=== PATIENT | female | born 1965 | race Caucasian/White ===

== ENCOUNTER → 2017-12-03 | Outpatient (CLI) | payer MEDICAID ==
[~2017-12-03] MED LIST: ACET-2247 PO; PANT20TA PO
== END ==
LOC: RAH 08:12
PROVIDERS: ATTEND Internal Medicine Gastroenterology
DX: N28.1 Cyst of kidney, acquired (principal); R63.4 Abnormal weight loss
CPT/HCPCS: 76700; 93975

== ENCOUNTER → 2018-01-08 | Outpatient (CLI) | payer MEDICAID | END | disposition home or self-care (01) | LOC: RAH 08:43 | PROVIDERS: ATTEND Internal Medicine Gastroenterology | DX: I74.9 Embolism and thrombosis of unspecified artery (principal); R10.84 Generalized abdominal pain | CPT/HCPCS: 93975 ==

== ENCOUNTER → 2018-01-19 | Outpatient (CLI) | payer MEDICAID ==
[~2018-01-19] MED LIST changes: +IOPAMIDOL-370 100 ML VIAL IV ONE
== END | disposition home or self-care (01) ==
LOC: RAH 08:29
PROVIDERS: ATTEND Internal Medicine Gastroenterology
DX: R93.3 Abnormal findings on diagnostic imaging of other parts of digestive tract (principal)
CPT/HCPCS: 74174; Q9967

== ENCOUNTER 2024-07-17 16:06 | Inpatient (IN) | payer MEDICAID ==
[~2024-07-17] VITALS: Ht 162.6 cm; Wt 47.9 kg
[~2024-07-17 16:06] MED LIST changes: -IOPAMIDOL-370 100 ML VIAL IV ONE
[2024-07-17 18:09] LABS: BASOPHILS # (AUTO) 0.06 K/uL (0.00-0.20); BASOPHILS % (AUTO) 0.3 % (0.0-5.0); EOSINOPHILS # (AUTO) 0.01 K/uL (0.00-0.70); EOSINOPHILS % (AUTO) 0.1 % (0.0-8.0); HEMATOCRIT 32.9 % (36-48); IMMATURE GRANULOCYTE ABSOLUTE 0.22 K/uL (0-1); LYMPHOCYTES # (AUTO) 1.8 K/uL (1.0-4.8); LYMPHOCYTES % (AUTO) 10.2 % (21.0-51.0); MEAN CORPUSCULAR HEMOGLOBIN 29.1 pg (27.0-33.0); MEAN CORPUSCULAR HGB CONC 33.4 g/dL (32.0-36.0); MONOCYTES # (AUTO) 1.1 K/uL (0.1-1.0); MONOCYTES % (AUTO) 6.4 % (3.0-13.0); NEUTROPHILS # (AUTO) 14.2 K/uL (1.8-7.7); NEUTROPHILS % (AUTO) 81.7 % (40.0-77.0); PLATELET COUNT (AUTO) 548 K/uL (130-400); RED BLOOD CELL COUNT(AUTO) 3.78 MIL/uL (4.00-5.50); RED CELL DISTRIBUTION WIDTH 13.5 % (11.0-15.5); WHITE BLOOD COUNT (AUTO) 17.4 K/uL (4.8-10.8)
[2024-07-17 18:13] LABS: APPEARANCE,URINE CLEAR (CLEAR); BILIRUBIN,URINE NEGATIVE (NEGATIVE); COLOR,URINE LIGHT-YELLOW (YELLOW); GLUCOSE, URINE (UA) NEGATIVE (NEGATIVE); KETONES,URINE NEGATIVE (NEGATIVE); LEUKOCYTE ESTERASE ,URINE NEGATIVE Leu/uL (NEGATIVE); NITRATE,URINE NEGATIVE (NEGATIVE); OCCULT BLOOD,URINE NEGATIVE (NEGATIVE); PH,URINE 5.5 (5.0-8.0); PROTEIN,URINE NEGATIVE (NEGATIVE); UROBILINOGEN,URINE 0.2 mg/dL (0.2-1.0)
[2024-07-17 18:17] LABS: ADD UA MICROSCOPIC NO
[2024-07-17 18:23] LABS: SARS-CoV-2, RNA, NAAT NEGATIVE SARS CoV-2 (NEGATIVE)
[2024-07-17 18:28] LABS: CREATININE 0.6 mg/dL (0.5-1.0); POTASSIUM 3.2 mmol/L (3.5-5.1)
[2024-07-17 18:32] LABS: INFLUENZA TYPE A Negative For Type A (NEGATIVE); INFLUENZA TYPE B Negative For Type B (NEGATIVE)
[2024-07-17 18:43] LABS: B-TYPE NATRIURETIC PEPTIDE 104 pg/mL (0-100)
[2024-07-17] MEDS: AZITHROMYCIN 500MG+NS 250ML 250 ML IVPB ONE (19:21)
[2024-07-17] MEDS: acetaMINOPHEN 500 MG TABLET PO ONE (19:22)
[2024-07-17 19:33] VITALS: PULSE 105; RESP 24
[2024-07-17] MEDS: IpraTROPium/alBUTERol SULFATE 3 ML SOLUTION IH ONE (19:33)
[2024-07-17] MEDS ORDERED: PoTASSium chloRIDE 20MEQ/100ML 100 ML IV PRN (21:00)
[2024-07-17] MEDS ORDERED: guaiFENesin-DM 200/20MG 10ML PO PRN (21:00)
[2024-07-17] MEDS ORDERED: NITROGLYCERIN 0.4 MG SL TAB SL PRN (21:00)
[2024-07-17] MEDS ORDERED: acetaMINOPHEN 325 MG TAB PO PRN (21:00)
[2024-07-17] MEDS: AZITHROMYCIN 500MG+NS 250ML 250 ML IV SCH (21:00)
[2024-07-17] MEDS: FAMOTIDINE 20MG TAB PO SCH (21:38)
[2024-07-17 22:27] VITALS: PULSE 96; RESP 20; O2SAT 97
[2024-07-17] MEDS: IpraTROPium/alBUTERol SULFATE 3 ML SOLUTION IH SCH (22:27)
[2024-07-18] VITALS (11 sets, daily range): BP systolic 106–116; BP diastolic 49–68; PULSE 86–110; RESP 17–20; TEMP 98.5–104; O2SAT 94–99
[2024-07-18] MEDS: PoTASSium chl 10% ELIXIR 20MEQ 20 MEQ/15 ML UDCUP PO PRN (00:16)
[2024-07-18] MEDS: 0.9% NACL 500ML IV.SOLN 500 ML IV SCH (01:19)
[2024-07-18] MEDS: PoTASSium chloRIDE 20MEQ ER 20 MEQ ERTAB PO PRN (01:19)
[2024-07-18] MEDS: 0.9%NACL 1000ML 1,000 ML IV SCH (01:19)
[2024-07-18 06:02] LABS: BASOPHILS # (AUTO) 0.04 K/uL (0.00-0.20); BASOPHILS % (AUTO) 0.2 % (0.0-5.0); EOSINOPHILS # (AUTO) 0.01 K/uL (0.00-0.70); EOSINOPHILS % (AUTO) 0.1 % (0.0-8.0); HEMATOCRIT 30.8 % (36-48); IMMATURE GRANULOCYTE ABSOLUTE 0.25 K/uL (0-1); LYMPHOCYTES # (AUTO) 1.8 K/uL (1.0-4.8); LYMPHOCYTES % (AUTO) 9.5 % (21.0-51.0); MEAN CORPUSCULAR HEMOGLOBIN 28.5 pg (27.0-33.0); MEAN CORPUSCULAR HGB CONC 32.8 g/dL (32.0-36.0); MEAN CORPUSCULAR VOLUME 86.8 fL (79-99); MONOCYTES % (AUTO) 5.5 % (3.0-13.0); NEUTROPHILS # (AUTO) 15.7 K/uL (1.8-7.7); NEUTROPHILS % (AUTO) 83.4 % (40.0-77.0); PLATELET COUNT (AUTO) 552 K/uL (130-400); RED BLOOD CELL COUNT(AUTO) 3.55 MIL/uL (4.00-5.50); RED CELL DISTRIBUTION WIDTH 13.6 % (11.0-15.5); WHITE BLOOD COUNT (AUTO) 18.8 K/uL (4.8-10.8)
[2024-07-18 06:18] LABS: ALBUMIN 2.5 g/dL (3.5-5.0); BILIRUBIN,TOTAL 0.4 mg/dL (0.2-1.0); CREATININE 0.7 mg/dL (0.5-1.0); MAGNESIUM 1.9 mg/dL (1.80-2.40); POTASSIUM 4.1 mmol/L (3.5-5.1); TOTAL PROTEIN, SERUM 7.7 g/dL (6.0-8.3)
[2024-07-18] MEDS: acetaMINOPHEN 325 MG TAB PO PRN (06:27)
[2024-07-18] MEDS: ENOXAPARIN SODIUM 30 MG/0.3 ML SQ SCH (08:37)
[2024-07-18] MEDS ORDERED: IOHEXOL-350 75 ML VIAL IV ONE (09:50)
[2024-07-18] MEDS: DOXYCYCLINE 100MG+NS 250ML 250 ML IV SCH (10:46)
[2024-07-18 12:06] LABS: ABG BASE EXCESS -3.6 mmol/L (-2.0-3.0); ABG HCO3 18.4 mmol/L (21.0-28.0); ABG OXYGEN SATURATION 92.5 % (94.0-98.0); ABG PCO2 24 mmHg (32-45); ABG PH 7.501 (7.350-7.450); CARBON MONOXIDE 0.3 % (0.5-1.5); DEVICE COMMENT RR,OSCAR; HHb 7.5; PO2, ARTERIAL BG 62.6 mmHg (83.0-108.0); VENT MODE, BG RA (ROOM AIR)
[2024-07-18] MEDS: ZOSYN 3.375GM +NS 50ML IV SCH (12:08)
[2024-07-18] MEDS: Solu-medROL 40MG VIAL IVP SCH (13:32)
[2024-07-18] MEDS: NICOTINE 14 MG/ 24 HR PATCH TD SCH (13:33)
[2024-07-18] MEDS: MAGNESIUM 2GM PREMIX 50ML 50 ML IV PRN (13:33)
[2024-07-18] MEDS ORDERED: ACET325C6 PO (13:50)
[2024-07-18 14:16] LABS: AMPHET/METH SCREEN,URINE NEGATIVE (NEGATIVE); BARBITURATE SCREEN, URINE NEGATIVE (NEGATIVE); BENZODIAZEPINES SCREEN,URINE NEGATIVE (NEGATIVE); CANNABINOID SCREEN,URINE POSITIVE (NEGATIVE); COCAINE SCREEN,URINE NEGATIVE (NEGATIVE); OPIATE SCREEN,URINE NEGATIVE (NEGATIVE); PHENCYCLIDINE SCREEN,URINE NEGATIVE (NEGATIVE)
[2024-07-18] MEDS: SODIUM CHLORIDE 3% FOR INHALATION 4 ML/AMP VIAL.NEB IH ONE ×2 (18:32→22:51)
[2024-07-18] MEDS: MELATONIN 5 MG TABLET PO SCH (19:52)
[2024-07-18] MEDS: ondanSETRON 4MG INJ IV PRN (19:53)
[2024-07-19] VITALS (10 sets, daily range): BP systolic 98–121; BP diastolic 42–65; PULSE 79–101; RESP 17–20; TEMP 97.7–99.3; O2SAT 95–98
[2024-07-19 05:36] LABS: BASOPHILS # (AUTO) 0.05 K/uL (0.00-0.20); BASOPHILS % (AUTO) 0.2 % (0.0-5.0); HEMATOCRIT 26.4 % (36-48); IMMATURE GRANULOCYTE ABSOLUTE 0.31 K/uL (0-1); LYMPHOCYTES % (AUTO) 4.7 % (21.0-51.0); MEAN CORPUSCULAR HEMOGLOBIN 29.1 pg (27.0-33.0); MEAN CORPUSCULAR VOLUME 88.3 fL (79-99); MONOCYTES # (AUTO) 0.4 K/uL (0.1-1.0); MONOCYTES % (AUTO) 2.1 % (3.0-13.0); NEUTROPHILS # (AUTO) 19.2 K/uL (1.8-7.7); NEUTROPHILS % (AUTO) 91.5 % (40.0-77.0); PLATELET COUNT (AUTO) 484 K/uL (130-400); RED BLOOD CELL COUNT(AUTO) 2.99 MIL/uL (4.00-5.50); WHITE BLOOD COUNT (AUTO) 20.9 K/uL (4.8-10.8)
[2024-07-19 05:48] LABS: INR 1.17 (0.85-1.15); PROTHROMBIN TIME 12.5 SEC (9.6-11.6)
[2024-07-19 05:49] LABS: PARTIAL THROMBOPLASTIN TIME 28.5 SEC (26.3-35.5)
[2024-07-19 06:07] LABS: ALBUMIN 1.9 g/dL (3.5-5.0); BILIRUBIN,TOTAL 0.3 mg/dL (0.2-1.0); CREATININE 0.6 mg/dL (0.5-1.0); POTASSIUM 3.4 mmol/L (3.5-5.1); TOTAL PROTEIN, SERUM 6.6 g/dL (6.0-8.3)
[2024-07-19 06:20] LABS: B-TYPE NATRIURETIC PEPTIDE 311 pg/mL (0-100)
[2024-07-19] MEDS: monteLUKAST sodIUM 10 MG TAB PO SCH (08:41)
[2024-07-19] MEDS: ALPRAZolam 0.25 MG TABLET PO ONE (14:30)
[2024-07-19] MEDS: IpraTROPium/alBUTERol SULFATE 3 ML SOLUTION IH SCH (19:28)
[2024-07-20] VITALS (14 sets, daily range): BP systolic 95–146; BP diastolic 51–69; PULSE 75–99; RESP 16–20; TEMP 97.5–97.9; O2SAT 97–98
[2024-07-20 05:55] LABS: BASOPHILS # (AUTO) 0.08 K/uL (0.00-0.20); BASOPHILS % (AUTO) 0.2 % (0.0-5.0); HEMATOCRIT 32.6 % (36-48); IMMATURE GRANULOCYTE ABSOLUTE 1.12 K/uL (0-1); LYMPHOCYTES # (AUTO) 1.6 K/uL (1.0-4.8); LYMPHOCYTES % (AUTO) 4.5 % (21.0-51.0); MEAN CORPUSCULAR HEMOGLOBIN 29.2 pg (27.0-33.0); MEAN CORPUSCULAR HGB CONC 32.2 g/dL (32.0-36.0); MEAN CORPUSCULAR VOLUME 90.8 fL (79-99); MONOCYTES % (AUTO) 2.8 % (3.0-13.0); NEUTROPHILS # (AUTO) 32.7 K/uL (1.8-7.7); NEUTROPHILS % (AUTO) 89.4 % (40.0-77.0); RED BLOOD CELL COUNT(AUTO) 3.59 MIL/uL (4.00-5.50); RED CELL DISTRIBUTION WIDTH 14.2 % (11.0-15.5)
[2024-07-20 05:59] LABS: PLATELET COUNT (AUTO) 726 K/uL (130-400); WHITE BLOOD COUNT (AUTO) 36.6 K/uL (4.8-10.8)
[2024-07-20 06:20] LABS: ALBUMIN 2.3 g/dL (3.5-5.0); BILIRUBIN,TOTAL 0.2 mg/dL (0.2-1.0); CREATININE 0.8 mg/dL (0.5-1.0); POTASSIUM 4.4 mmol/L (3.5-5.1); THYROID STIMULATING HORMONE 0.59 uIU/mL (0.36-3.74); TOTAL PROTEIN, SERUM 7.5 g/dL (6.0-8.3)
[2024-07-20 07:40] LABS: LYMPHOCYTES % (MANUAL) 6 % (22-44); MAN.DIFF COMMENT-IMPRESSION MANUAL DIFFERENTIAL; MONOCYTES % (MANUAL) 2 % (2-9); PLATELET MORPHOLOGY COMMENT MARKED INCREASE; SEGMENTED NEUTROPHILS % 92 % (40-70); TOTAL CELLS COUNTED 100
[2024-07-20] MEDS: predniSONE 20 MG TABLET PO SCH (09:04)
[2024-07-21] VITALS (14 sets, daily range): BP systolic 95–146; BP diastolic 54–80; PULSE 71–108; RESP 16–20; TEMP 97.6–98.4; O2SAT 95–98
[2024-07-21 04:52] LABS: BASOPHILS # (AUTO) 0.03 K/uL (0.00-0.20); BASOPHILS % (AUTO) 0.2 % (0.0-5.0); HEMATOCRIT 26.1 % (36-48); LYMPHOCYTES # (AUTO) 2.6 K/uL (1.0-4.8); LYMPHOCYTES % (AUTO) 14.2 % (21.0-51.0); MEAN CORPUSCULAR HEMOGLOBIN 28.7 pg (27.0-33.0); MEAN CORPUSCULAR HGB CONC 32.6 g/dL (32.0-36.0); MEAN CORPUSCULAR VOLUME 88.2 fL (79-99); MONOCYTES % (AUTO) 5.4 % (3.0-13.0); NEUTROPHILS # (AUTO) 14.1 K/uL (1.8-7.7); NEUTROPHILS % (AUTO) 77.5 % (40.0-77.0); PLATELET COUNT (AUTO) 595 K/uL (130-400); RED BLOOD CELL COUNT(AUTO) 2.96 MIL/uL (4.00-5.50); RED CELL DISTRIBUTION WIDTH 13.9 % (11.0-15.5); WHITE BLOOD COUNT (AUTO) 18.3 K/uL (4.8-10.8)
[2024-07-21 05:17] LABS: ALBUMIN 1.9 g/dL (3.5-5.0); BILIRUBIN,TOTAL 0.2 mg/dL (0.2-1.0); CREATININE 0.6 mg/dL (0.5-1.0); POTASSIUM 3.3 mmol/L (3.5-5.1); TOTAL PROTEIN, SERUM 5.9 g/dL (6.0-8.3)
[2024-07-21 05:59] LABS: B-TYPE NATRIURETIC PEPTIDE 185 pg/mL (0-100)
[2024-07-21] MEDS: ALPRAZolam 0.25 MG TABLET PO ONE (12:43)
[2024-07-22] VITALS (11 sets, daily range): BP systolic 105–124; BP diastolic 56–62; PULSE 70–88; RESP 18–20; TEMP 97.8–98.3; O2SAT 95–99
[2024-07-22 06:12] LABS: BASOPHILS # (AUTO) 0.07 K/uL (0.00-0.20); BASOPHILS % (AUTO) 0.5 % (0.0-5.0); EOSINOPHILS # (AUTO) 0.01 K/uL (0.00-0.70); EOSINOPHILS % (AUTO) 0.1 % (0.0-8.0); LYMPHOCYTES # (AUTO) 3.4 K/uL (1.0-4.8); LYMPHOCYTES % (AUTO) 22.8 % (21.0-51.0); MEAN CORPUSCULAR HEMOGLOBIN 28.7 pg (27.0-33.0); MEAN CORPUSCULAR HGB CONC 32.6 g/dL (32.0-36.0); MEAN CORPUSCULAR VOLUME 88.1 fL (79-99); MONOCYTES # (AUTO) 0.9 K/uL (0.1-1.0); MONOCYTES % (AUTO) 5.9 % (3.0-13.0); NEUTROPHILS # (AUTO) 9.7 K/uL (1.8-7.7); NEUTROPHILS % (AUTO) 64.7 % (40.0-77.0); RED BLOOD CELL COUNT(AUTO) 3.52 MIL/uL (4.00-5.50)
[2024-07-22 06:14] LABS: PLATELET COUNT (AUTO) 789 K/uL (130-400)
[2024-07-22 06:32] LABS: ALBUMIN 2.2 g/dL (3.5-5.0); BILIRUBIN,TOTAL 0.2 mg/dL (0.2-1.0); CREATININE 0.6 mg/dL (0.5-1.0); POTASSIUM 3.6 mmol/L (3.5-5.1); TOTAL PROTEIN, SERUM 6.5 g/dL (6.0-8.3)
[2024-07-22 07:35] LABS: BAND NEUTROPHILS % (MANUAL) 3 % (0-2); LYMPHOCYTES % (MANUAL) 31 % (22-44); MAN.DIFF COMMENT-IMPRESSION MANUAL DIFFERENTIAL; MONOCYTES % (MANUAL) 5 % (2-9); SEGMENTED NEUTROPHILS % 61 % (40-70); TOTAL CELLS COUNTED 100
[2024-07-22 07:36] LABS: WBC MORPHOLOGY CONSISTENT W/DIFF
[2024-07-22 07:37] LABS: PLATELET MORPHOLOGY COMMENT MARKED INCREASE
[2024-07-22] MEDS: fluCONazole 100 MG TAB PO SCH (09:00)
[2024-07-22] MEDS: ALPRAZolam 0.25 MG TABLET PO SCH (09:02)
[2024-07-22 09:16] LABS: FREE KAPPA LIGHT CHAINS,S 25.2 mg/L (3.3-19.4)
[2024-07-22] MEDS ORDERED: FLUT1BLS3 IH (15:05)
[2024-07-22] MEDS ORDERED: CHOL500050 PO (15:05)
[2024-07-22] MEDS ORDERED: ASCO250T70 PO (15:05)
[2024-07-22] MEDS ORDERED: CYAN-106 PO (15:05)
[2024-07-22] MEDS ORDERED: FOLI0.8T3 PO (15:05)
[2024-07-22] MEDS ORDERED: ALBU18HF7 IH (15:05)
[2024-07-22] MEDS ORDERED: PRED20TA3 PO (15:05)
[2024-07-22] MEDS ORDERED: PRED10TA3 PO (15:05)
[2024-07-22 16:12] LABS: ALBUMIN (IFE & ELECTROPHOR) 2.4 g/dL (2.9-4.4); ALBUMIN/GLOBULIN RATIO (IFE) 0.7 (0.7-1.7); ALPHA-1 (IFE & PEP) 0.6 g/dL (0.0-0.4); ALPHA-2 (IFE & PEP) 1.4 g/dL (0.4-1.0); BETA (IFE & ELP) 0.9 g/dL (0.7-1.3); GAMMA GLOBULINS (IFE & ELP) 1.1 g/dL (0.4-1.8); IGA (IFE) 162 mg/dL (87-352); IGG (IMMUNOFIXATION) 1037 mg/dL (586-1602); IGM (IMMUNOFIXATION) 121 mg/dL (26-217); M-SPIKE (IEP) Not Observed g/dL (Not Observed); TOTAL PROTEIN 6.4 g/dL (6.0-8.5)
[2024-07-23] MEDS ORDERED: CALC-322 PO (19:05)
== END 2024-07-22 19:15 | disposition home or self-care (01) | DRG 720 ==
LOC: EDH 16:06 → EDHIP 16:07 → 3AH 07-18 12:35
PROVIDERS: ADMIT Hospitalist; ATTEND Hospitalist
DX: A41.9 Sepsis, unspecified organism (principal); J96.01 Acute respiratory failure with hypoxia; R64 Cachexia; J18.9 Pneumonia, unspecified organism; E87.1 Hypo-osmolality and hyponatremia; E88.09 Other disorders of plasma-protein metabolism, not elsewhere classified; J44.0 Chronic obstructive pulmonary disease with (acute) lower respiratory infection; J44.1 Chronic obstructive pulmonary disease with (acute) exacerbation; J43.9 Emphysema, unspecified; D75.839 Thrombocytosis, unspecified; E87.6 Hypokalemia; F17.210 Nicotine dependence, cigarettes, uncomplicated; R74.01 Elevation of levels of liver transaminase levels; D64.9 Anemia, unspecified; E78.5 Hyperlipidemia, unspecified; G89.29 Other chronic pain; F41.9 Anxiety disorder, unspecified; F32.A Depression, unspecified; R79.89 Other specified abnormal findings of blood chemistry; Z20.822 Contact with and (suspected) exposure to COVID-19; Z90.710 Acquired absence of both cervix and uterus; Z83.3 Family history of diabetes mellitus; Z82.5 Family history of asthma and other chronic lower respiratory diseases; Z82.49 Family history of ischemic heart disease and other diseases of the circulatory system; Z80.9 Family history of malignant neoplasm, unspecified; Z88.1 Allergy status to other antibiotic agents; Z88.2 Allergy status to sulfonamides; Z68.1 Body mass index [BMI] 19.9 or less, adult
CPT/HCPCS: 36415; 36600; 71045; 71270; 80048; 80053; 80305; 81003; 82435; 82803; 82947; 83521; 83605; 83735; 83880; 84132; 84145; 84295; 84443; 84484; 85018; 85025; 85378; 85610; 85730; 86334; 87040; 87071; 87205; 87635; 87804; 87880; 93005; 93306; 93970; 94640; 94664; 94760; G0378; J0456; J1650; J2405; J2543; J2919; J3475; J3490; Q9967